=== PATIENT | female | born 1940 | race Two or more races ===

== ENCOUNTER 2018-05-08 07:49 | Outpatient (CLI) | payer OTHER ==
[~2018-05-08 07:49] MED LIST: ASA81 MG PO; LIPITOR20 MG PO; SYNTHROID75 MCG PO
== END 2018-05-08 08:03 | disposition home or self-care (01) ==
LOC: RAD 07:49
DX: Z12.31 Encounter for screening mammogram for malignant neoplasm of breast (principal); Z87.898 Personal history of other specified conditions; C50.911 Malignant neoplasm of unspecified site of right female breast; I11.9 Hypertensive heart disease without heart failure; E11.9 Type 2 diabetes mellitus without complications

== ENCOUNTER 2018-10-06 09:35 | Outpatient (CLI) | payer OTHER | END 2018-10-06 09:44 | disposition home or self-care (01) | LOC: NUCLEAR 09:35 | DX: M81.0 Age-related osteoporosis without current pathological fracture (principal); M15.0 Primary generalized (osteo)arthritis ==

== ENCOUNTER 2019-11-27 11:59 | Outpatient (CLI) | payer OTHER | END 2019-11-27 12:12 | disposition home or self-care (01) | LOC: MAMO-SONO 11:59 | PROVIDERS: ATTEND Internal Medicine Geriatric Medicine | DX: Z12.31 Encounter for screening mammogram for malignant neoplasm of breast (principal); C50.919 Malignant neoplasm of unspecified site of unspecified female breast; N64.4 Mastodynia; N64.59 Other signs and symptoms in breast; N60.12 Diffuse cystic mastopathy of left breast; N60.11 Diffuse cystic mastopathy of right breast ==

== ENCOUNTER 2020-07-10 08:56 | Outpatient (CLI) | payer OTHER | END 2020-07-10 09:17 | disposition home or self-care (01) | LOC: RAD 08:56 | PROVIDERS: ATTEND Ophthalmology | DX: H25.12 Age-related nuclear cataract, left eye (principal); Z01.810 Encounter for preprocedural cardiovascular examination ==

== ENCOUNTER 2021-07-17 09:00 | Outpatient (CLI) | payer OTHER | END 2021-07-17 09:14 | disposition home or self-care (01) | LOC: TOM 09:00 → MAMO-SONO 09:00 → TOM 09:14 | PROVIDERS: ATTEND Internal Medicine Geriatric Medicine | DX: Z12.31 Encounter for screening mammogram for malignant neoplasm of breast (principal); C50.919 Malignant neoplasm of unspecified site of unspecified female breast; N63.0 Unspecified lump in unspecified breast; N64.4 Mastodynia; N60.12 Diffuse cystic mastopathy of left breast; N60.11 Diffuse cystic mastopathy of right breast; J16.8 Pneumonia due to other specified infectious organisms; U07.1 COVID-19 ==

== ENCOUNTER 2022-02-05 12:45 | Outpatient (CLI) | payer OTHER | END 2022-02-05 12:47 | disposition home or self-care (01) | LOC: NUCLEAR 12:45 | PROVIDERS: ATTEND Internal Medicine Geriatric Medicine | DX: M81.0 Age-related osteoporosis without current pathological fracture (principal); M15.0 Primary generalized (osteo)arthritis; Z91.041 Radiographic dye allergy status ==

== ENCOUNTER 2023-04-27 08:50 | Outpatient (CLI) | payer OTHER | END 2023-04-27 08:56 | disposition home or self-care (01) | LOC: MAMO-SONO 08:50 | PROVIDERS: ATTEND Internal Medicine Geriatric Medicine | DX: N63.0 Unspecified lump in unspecified breast (principal); C50.919 Malignant neoplasm of unspecified site of unspecified female breast; Z12.31 Encounter for screening mammogram for malignant neoplasm of breast; N64.4 Mastodynia; N60.11 Diffuse cystic mastopathy of right breast; N60.12 Diffuse cystic mastopathy of left breast ==

== ENCOUNTER → 2024-11-13 10:28 | Outpatient (CLI) | payer OTHER | END | disposition home or self-care (01) | LOC: NUCLEAR 10:28 | PROVIDERS: ATTEND Internal Medicine Geriatric Medicine | DX: M81.0 Age-related osteoporosis without current pathological fracture (principal) ==

== ENCOUNTER 2024-11-13 11:54 | Outpatient (CLI) | payer OTHER | END 2024-11-13 11:56 | disposition home or self-care (01) | LOC: MAMO-SONO 11:54 | PROVIDERS: ATTEND Internal Medicine Geriatric Medicine | DX: N64.4 Mastodynia (principal); N63.0 Unspecified lump in unspecified breast; N60.11 Diffuse cystic mastopathy of right breast; N60.12 Diffuse cystic mastopathy of left breast; C50.919 Malignant neoplasm of unspecified site of unspecified female breast; Z12.31 Encounter for screening mammogram for malignant neoplasm of breast ==